=== PATIENT | female | born 1980 | race Caucasian/White ===

== ENCOUNTER → 2023-10-05 15:33 | Outpatient (REF) | payer OTHER, SELFPAY | LOC: WDC 15:33 | PROVIDERS: ATTENDING PHYSICIAN Physician Assistant Medical | DX: Z12.31 Encounter for screening mammogram for malignant neoplasm of breast (principal) | CPT/HCPCS: 77063; 77067 ==

== ENCOUNTER 2024-01-21 16:53 | Emergency (ER) | payer OTHER, SELFPAY ==
[2024-01-21 16:56] VITALS: BP 170/112
[2024-01-21 18:16] VITALS: BP 144/103
[2024-01-21 18:24] VITALS: BMI 20.8
--- NOTE | 2024-01-21 18:26 | EDRN ---
Pt with several days of high bp. Pt adds she has had a cough and went to her doctor 3-4 days ago for the cough. Pt had high bp in the office and was sent home. Pt says she continued with high bp at home and returned to her doctor yesterday
because of this and was prescribed nebivolol. Today, bp continued to be elevated and left hand developed numbness. BP at home was 155/109 most recently. Called doctor and she was advised to come to the ED for evaluation. Pt took one dose
nebivolol yesterday and today. Pt with intermittent headache over past couple weeks - no headache now. No n/v, dizziness, weakness, cp/sob, fever/chills, visual/speech/ambulatory impairment. Pt still has numbness in L hand/wrist.
[2024-01-21 18:46] VITALS: BP 138/94
[2024-01-21 19:00] VITALS: BP 131/92
[2024-01-21 20:00] VITALS: BP 134/91
[2024-01-21 20:02] LABS: Blood Urea Nitrogen 12 mg/dl (7-17); Calcium 9.4 mg/dl (8.4-10.2); Carbon Dioxide 21 mmol/L (22-30); Chloride 104 mmol/L (98-107); Estimated Creatinine Clearance 103 ml/min; Glucose 108 mg/dl (70-99); Sodium 139 mmol/L (135-145); eGFR > 60.00
[2024-01-21 20:14] LABS: Troponin I < 0.012 ng/ml
--- NOTE | 2024-01-21 20:24 | ED.GENMED ---
History of Present Illness
General
Chief Complaint: Blood Pressure Problem
Source: patient
Exam Limitations: none
Time Seen by Provider: 01/21/24 18:58
Nursing documentation reviewed up to this point in time: agreed with
History of Present Illness
History of Present Illness:
This is a 43-year-old woman who presents to the ED with concerns for elevated blood pressure accompanied with some paresthesia left posterior hand which she noted this afternoon and has persisted. She denies chest pain, no shortness of breath. She
has had URI symptoms, a cough for few days and was evaluated by her PCP earlier this week for cough, was noted to have elevated blood pressure at that time. She was started on a Medrol Dosepak and returned yesterday for recheck of blood pressure,
was still elevated and thus nebivolol 5 mg once daily was started as of yesterday.
According to patient, blood pressure had been running in the 140s systolic at doctor's office visits over the past 2 years.
She was started on control pills 1 month ago by her biological science aide due to perimenopausal symptoms. Her blood pressure was much higher this past week due to concern that elevated blood pressure was related to control pills she discontinued
these 2 days ago.
Due to left posterior hand numbness and elevated blood pressure she called her PCP and was recommended to come to the ED for further evaluation.
She is a lifelong non-smoker. No recent travel. She denies leg pain or swelling. No chest pain no shortness of breath, no dyspnea on exertion. No weakness. No falls or injuries.
Overall cough has been improving over this past week.
Past History
Past History
ED Past Medical History: HTN
ED Past Surgical History: None
Social History
Tobacco: Non-smoker
Alcohol: Occasional
Drug: None
Personal:
Living: with family
Employment: Employed
Family History
Family History: Other (Noncontributory); Negative Hypertension or CAD
Phy Exam
Physical Exam
Physical Exam:
GENERAL: 43-year-old stated age, bright and alert, pleasant, appears in no acute distress.
EYE: pupils equal and reactive. anicteric
NECK: Supple, nontender, no meningismus, no significant adenopathy.
ENT: posterior pharynx is clear, oral mucosa is moist. TM clear b/l, nares patent.
CARDIAC: Regular rate and rhythm. no murmur.
LUNGS: Clear breath sounds bilaterally, no acute respiratory distress, no wheezes/rales/rhonchi
ABDOMEN: Soft, nondistended, without focal tenderness
NEUROLOGICAL: Alert and oriented x3, no focal neuro deficits. Motor strength 5/5 bilaterally. Gross sensation is intact.
SKIN: Warm and dry, normal color, skin intact. No rash.
MUSCULOSKELETAL: No C/C/E. peripheral pulses are full and equal b/l. No palpable tenderness.
PSYCH: Normal and appropriate interaction.
Course
Orders/Labs/Results
Orders:
Orders
01/21/24 16:54
Electrocardiogram (*1) Urgent
Reason for Study: Other
Other Reason for Exam: high blood pressure, hand numbness
EKG- Treatment ONCE
01/21/24 19:27
Basic Metabolic Panel Urgent
Troponin I Urgent
Abnormal Lab Results
01/21/24
19:27
Carbon Dioxide 21 L mmol/L
(22-30)
Glucose 108 H mg/dl
(70-99)
01/21/24 19:27
Vital Signs
Initial and Last Documented VS:
Initial Vital Signs
Temp Pulse Resp BP Pulse Ox
98.6 F 80 16 170/112 100
01/21/24 16:56 01/21/24 16:56 01/21/24 16:56 01/21/24 16:56 01/21/24 16:56
Last Documented Vital Signs
Temp Pulse Resp BP Pulse Ox
98.6 F 71 19 134/91 100
01/21/24 16:56 01/21/24 20:00 01/21/24 20:00 01/21/24 20:00 01/21/24 16:56
MDM/Problems Addressed
Differential Diagnosis Includes:
Patient with history of somewhat borderline to early hypertension with reported systolic blood pressure 140s over the past 2 years, has trended up during office visits this week and started on beta-ciara yesterday.
Elevated blood pressure initially 170/112, has improved, near normalized to 134/91 upon recheck and without intervention.
She complains of some focal paresthesia left dorsal hand without other associated symptoms. ACS is unlikely but will check troponin.
She has had no chest pain, no back pain, there is no focal neurologic deficit. Nothing to suggest dissection, CVA.
EKG is unremarkable and unchanged from previous 2 years ago.
Other than hypertension, no significant risk factors for CAD and no family history of such.
She has recently discontinued oral contraceptives and oral contraceptives can certainly aggravate hypertension. Recommend she continue to hold oral contraceptives.
Will check BMP as well as troponin to assess for potential endorgan damage.
Chronic conditions affecting care: HTN
*Pulse Oximetry
Patient hypoxic: no
*EKG
Interpreted by ED Provider?: Yes
Interpretation: normal
Comparison EKG: no changes (Unchanged from previous December 2021)
Rate: normal
Rhythm: sinus
Windber: normal axis
Interval: normal interval
QRS Pattern: normal QRS
Ischemia: no ischemia
*[employer] Interpretation
Rate: normal
Interpretation: normal
Rhythm: sinus
*Critical Care Note
Total Time (30-74mins, 75-104mins- exclusive of procedures): Not Applicable
Update Note
Update Note:
Labs are unremarkable.
Normal BMP, normal troponin.
Patient continues to appear comfortable. She does note some continued paresthesia left dorsal hand but focal in nature and no definitive neurodeficits. I suspect she may have an element of a peripheral neuropathy.
Recommend she continue to hold oral contraceptive and otherwise continue nebivolol.
Follow-up with PCP next week for recheck.
ED Attending Note
-
Portions of this chart may have been created with voice recognition software.� Occasional wrong word or��sound alike� substitutions may have occurred due to the inherent limitations of voice recognition software.
Discharge Plan
Departure
Patient Disposition: Home (Routine Discharge)
Date of Disposition: 01/21/24
Time of Disposition: 20:24
Patient with high blood pressure during this ER visit?: No
Condition: Good
Discharge Problem:
Essential hypertension, Left hand paresthesia
Instructions: High Blood Pressure (DC)
Prescriptions:
No Action
methylprednisolone 4 mg Tablet
4 mg PO DAILY
Rx Instructions:
pt on tapering dose - today is 4mg
nebivolol 5 mg Tablet
5 mg PO DAILY
Referrals:
Baljeet Hatfield, [Family Provider] - Call in 1-3 days for appt
Activity Restrictions/Additional Instructions:
Continue to hold control pills.
Continue nebivolol 5 mg daily.
Finish medrol dose pack for cold/cough.
Follow up with your family doctor for recheck.
Interventions
Interventions:
*Risk Screen - Suicide Last Done: 01/21/24 18:24
*General Assessment Last Done: 01/21/24 18:24
*Neglect/Abuse Screening Last Done: 01/21/24 18:24
*ED COVID-19 Vaccine History Last Done: 01/21/24 18:24
ED- Cardiac Assessment Last Done: 01/21/24 18:36
ED- Neurological Assessment Last Done: 01/21/24 18:36
ED- Pulmonary Assessment Last Done: 01/21/24 18:36
Discharge Date and Time
Print Language: KOREAN
[2024-01-21 20:30] VITALS: BP 132/93
== END 2024-01-21 20:57 | disposition home or self-care (01) ==
LOC: EMR 16:53
PROVIDERS: EMERGENCY PHYSICIAN Emergency Medicine; FAMILY PHYSICIAN Family Medicine
DX: I10 Essential (primary) hypertension (principal); R20.2 Paresthesia of skin
CPT/HCPCS: 99283; 80048; 84484; 93005

== ENCOUNTER → 2024-01-27 08:09 | Outpatient (REF) | payer OTHER, SELFPAY | LOC: WDC 08:09 | PROVIDERS: ATTENDING PHYSICIAN Physician Assistant Medical | DX: R92.2 Inconclusive mammogram (principal) | CPT/HCPCS: 76641 ==

== ENCOUNTER → 2024-07-31 14:07 | Outpatient (REF) | payer OTHER, SELFPAY | LOC: WDC 14:07 | PROVIDERS: ATTENDING PHYSICIAN Physician Assistant Medical | DX: R92.8 Other abnormal and inconclusive findings on diagnostic imaging of breast (principal) | CPT/HCPCS: 76642 ==

== ENCOUNTER → 2024-08-17 09:30 | Outpatient (REF) | payer OTHER, SELFPAY | LOC: RAD 09:30 | PROVIDERS: ATTENDING PHYSICIAN Obstetrics & Gynecology; FAMILY PHYSICIAN Physician Assistant Medical | DX: R14.0 Abdominal distension (gaseous) (principal) | CPT/HCPCS: 76830; 76856 ==

== ENCOUNTER → 2024-10-06 13:20 | Outpatient (REF) | payer OTHER, SELFPAY | LOC: WDC 13:20 | PROVIDERS: ATTENDING PHYSICIAN Physician Assistant Medical | DX: Z12.31 Encounter for screening mammogram for malignant neoplasm of breast (principal) | CPT/HCPCS: 77063; 77067 ==